=== PATIENT | male | born 1970 | race Caucasian/White ===

== ENCOUNTER → 2021-12-24 00:52 | Outpatient (CLI) | payer BC, SELFPAY ==
--- NOTE | 2021-12-24 14:45 | DI.DEXA_ITS ---
Exam(s) XR DEXA BONE DENSITY W/WO ROSE EXAM: XR DEXA BONE DENSITY W/WO ROSE CLINICAL HISTORY: PROSTATE CA, C61, ON HORMONE THERAPY, RISK OSTEOPOROSIS/FRACTURE TECHNIQUE: [employer] C densitometer analysis of left hip and lumbar spine. Neither risk coul d be scanned due to previous fractures. COMPARISON: No exams were available for comparison FINDINGS: Lateral view of the thoracic and lumbar spine shows no evidence of compression fractures. Bone mineral density measurements of the lumbar spine correspond to a total T-score of -0.7, in the normal range. Bone mineral density measurements of the left hip correspond to a total T-score of 0.1. The femoral neck T-score is -0.4, in the normal range. . IMPRESSION: Normal bone mineral density of the lumbar spine and left hip.
== END ==
PROVIDERS: PCP Family Medicine; Visit Provider Radiology Radiation Oncology
DX: Z13.820 Encounter for screening for osteoporosis (principal); C61 Malignant neoplasm of prostate; Z79.890 Hormone replacement therapy
CPT/HCPCS: 77080